=== PATIENT | male | born 1960 | race Caucasian/White ===

== ENCOUNTER 2019-05-29 13:55 | Inpatient (IN) ==
[2019-05-29] MEDS ORDERED: PERCOCET-5 PO PRN (14:59)
[2019-05-29] MEDS ORDERED: LANTUS INSULIN SUBQ SCH (16:00)
[2019-05-29] MEDS: NS 1,000 ML IV SCH (16:53)
[2019-05-29] MEDS: NEURONTIN PO SCH ×2 (16:53→22:39)
[2019-05-29] MEDS: HUMULIN R SUBQ SCH ×2 (17:10→22:39)
[2019-05-29 17:49] LABS: PROTIME 11.8 Seconds (11.0-16.0)
--- NOTE | 2019-05-29 17:52 | ECHO REPORT ---
ORDER DATE: 05/29/2019 INDICATION: Cerebrovascular accident. FINDINGS: 1. Right atrium appears normal in size. 2. Mild tricuspid regurgitation. RV systolic pressure of 33. 3. Normal RV size and systolic function. 4. Mild pulmonic insufficiency. 5. Normal left atrial size at 3.3 cm. 6. No mitral prolapse. Trace mitral regurgitation. No evidence of mitral stenosis. 7. Normal LV size, end-diastolic dimension of 4 cm. Mild left ventricular hypertrophy. Posterior and interventricular septal wall thickness 1.2 cm each. Hyperdynamic LV systolic function. Estimated EF greater than 70%. 8. The aortic valve opens well. It is trileaflet. No evidence of stenosis or insufficiency. 9. The aorta appears normal in visualized segments. 10. No pericardial effusion seen. cc: MD Brittney Turner MD
[2019-05-29 18:04] LABS: INR 0.8
--- NOTE | 2019-05-29 18:16 | Diag Imaging Result Doc PS360 ---
EXAM: CT HEAD W/O CONTRAST HISTORY: CVA TECHNIQUE: CT head without contrast COMPARISON: 07/24/2018 FINDINGS: No parenchymal hemorrhage. No epidural or subdural hematoma. No subarachnoid hemorrhage. Old left parietal infarct similar to the prior study. No mass identified on this noncontrasted exam. No hydrocephalus. No sinus opacification. IMPRESSION: 1.No hemorrhage 2.Old left infarct. This exam was performed using automated exposure control, adjustment of mA or kV according to patient size, and/or use of iterative reconstruction technique. Electronically signed by Augie Hodge 05/29/2019 6:13 PM
[2019-05-29] MEDS: GLUCOPHAGE PO SCH (18:18)
[2019-05-29] MEDS: BUSPAR PO SCH (22:38)
[2019-05-29] MEDS: LIPITOR PO SCH (22:38)
[2019-05-29] MEDS: TRENTAL PO SCH (22:39)
[2019-05-30] MEDS: NS 1,000 ML IV SCH ×2 (05:38→13:33)
[2019-05-30] MEDS: LANTUS INSULIN SUBQ SCH ×2 (06:40→16:07)
[2019-05-30] MEDS: HUMULIN R SUBQ SCH ×4 (06:40→22:25)
[2019-05-30 07:03] LABS: HEMATOCRIT 39.6 % (42.0-52.0); HEMOGLOBIN 12.8 g/dL (14.0-18.0); MCH 26.7 PG (27-31); MCHC 32.3 g/dL (33-37); MCV 82.7 FL (81-99); RBC 4.79 XMIL (4.7-6.1); WBC 6.18 X1000 (4.8-10.8)
[2019-05-30 07:04] LABS: MPV 9.5 FL (7.4-10.4); RDW 15.4 % (11.5-14.5)
[2019-05-30 07:24] LABS: AGAP 9; BUN 14 mg/dL (8-22); CALCIUM 8.9 mg/dL (8.8-10.2); CHLORIDE 99 mmol/L (98-107); COSMO 278; CREATININE 0.5 mg/dL (0.7-1.2); ESTIMATED GFR > 60; GLUCOSE 107 mg/dL (70-104); POTASSIUM 3.3 mmol/L (3.5-5.1); SODIUM 139 mmol/L (136-145); TCO2 31 mmol/L (25-35)
[2019-05-30] MEDS ORDERED: KLOR-CON PO ONE (08:16)
[2019-05-30] MEDS: BUSPAR PO SCH ×2 (08:17→22:24)
[2019-05-30] MEDS: PAXIL PO SCH (08:17)
[2019-05-30] MEDS: NEURONTIN PO SCH ×3 (08:17→22:24)
[2019-05-30] MEDS: TRENTAL PO SCH ×2 (08:17→22:24)
[2019-05-30] MEDS: GLUCOPHAGE PO SCH (08:17)
[2019-05-30] MEDS: DEXILANT PO SCH (08:17)
--- NOTE | 2019-05-30 08:56 | PROGRESS NOTE ---
DATE: 05/30/2019 SUBJECTIVE: Mr. Sotelo was admitted to [facility] with an embolic CVA suggestive of distribution of the left middle cerebral artery. He continues with persistent right-sided weakness. His speech seems a little bit more slurred this morning. His tongue is pointing to the left. He remains in normal sinus rhythm. An ultrasound of the carotids demonstrated chronic occlusion of the left internal carotid artery. The left vertebral artery is now occluded. His echocardiogram is unremarkable. He was hypotensive on admission. We held his blood pressure medicines and resuscitated him with fluids. Systolic blood pressures are now ranging from 105 to 125, whereas his diastolic blood pressures are in the 60s. He denies any chest pain, palpitations, or anginal equivalents. Blood sugars are fluctuating. His sugars are ranging from 178 to 289. OBJECTIVE: Vital Signs: Temperature 98.5 degrees, pulse 85, respiratory rate 12, BP 105/62. Neck: There is a left carotid bruit. CV: Regular rate and rhythm. Lungs: Clear. Abdomen: Soft, nontender, with active bowel sounds. No hepatosplenomegaly. No abdominal bruits. Extremities: Without edema. Neurologic: He is alert and oriented to name, place, and time. Speech is somewhat slurred. Tongue is deviated to the left. He has right-sided weakness. Strength is 4/5 in the right upper extremity and 3-4/5 in the right lower extremity. LABORATORY STUDIES: Various laboratory studies were obtained. A BMP demonstrated the following: Sodium 139, potassium 3.3, BUN 14 and creatinine 0.5. A lipid profile demonstrated total cholesterol of 115, triglycerides 87, LDL 82 and an HDL of 29. A CBC demonstrated white count 6.1, hemoglobin 12.8, hematocrit 39.6 and a platelet count of 289,000. ASSESSMENT AND PLAN: 1. Embolic cerebrovascular accident suggestive of the left middle cerebral distribution. His speech seems more slurred this morning. His initial CT scan of the brain demonstrated a previous left hemispheric stroke. We will check an MRI of the brain today. I will switch him from Plavix to Xarelto 20 mg daily. We will continue aggressive risk factor modification. I have consulted [employer]ices[employer] Representative for short-term rehabilitation placement, and I have also placed a consultation to physical therapy. 2. Mixed hyperlipidemia. Lipids meet the goals of therapy. I will continue atorvastatin 80 mg at bedtime. 3. 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 We will continue an 1800 calorie [employer] diet, pattern sugars, Humulin R sliding scale, and regular home dosage of insulin. 4. Diarrhea. He is currently taking metformin. I will stop the metformin. Nursing staff reported that his stools had a pungent odor. I will check stools for Clostridium difficile toxin and antigen. 5. Hypokalemia. I will give him KCl 20 mEq oral times 1 dose, and recheck a basic metabolic panel in the morning. cc: Brittney Oswald MD
[2019-05-30] MEDS ORDERED: PLAVIX PO SCH (09:00)
--- NOTE | 2019-05-30 13:52 | Diag Imaging Result Doc PS360 ---
EXAM: MRI BRAIN W/CONTRAST 05/30/2019 HISTORY: CVA TECHNIQUE: T1 sagittal, axial and post gadolinium-enhanced axial with coronal reformation, axial T2, FLAIR, DWI and coronal gradient echo. COMMENT: There is extensive encephalomalacia in the left hemisphere. There is no evidence of mass effect or bleed. There is minimal cortical restricted diffusion over the parietal convexity both anterior and posteriorly on the left. There are no previous MRI studies. There is some gyriform enhancement present in the superior left parietal lobe. These areas are also demonstrating restricted diffusion. Presumably this represents E perfusion there is no evidence of bleed, mass effect, or abnormal extra-axial fluid collection. IMPRESSION: Multiple small infarctions in the periphery of the large encephalomalacic region of the left hemisphere. The findings were discussed with Iveth Oswald MD at 05/30/2019 1:50 PM. Electronically signed by Jaylon Heck 05/30/2019 1:50 PM
[2019-05-30] MEDS: XARELTO PO SCH (16:07)
[2019-05-30] MEDS: LIPITOR PO SCH (22:24)
[2019-05-31] MEDS: NS 1,000 ML IV SCH ×2 (05:50→06:21)
[2019-05-31] MEDS: LANTUS INSULIN SUBQ SCH (06:19)
[2019-05-31] MEDS: HUMULIN R SUBQ SCH ×4 (06:20→21:30)
--- NOTE | 2019-05-31 10:12 | PROGRESS NOTE ---
DATE: 05/31/2019 SUBJECTIVE: Mr. Sotelo was admitted to [facility] with an acute hemispheric stroke in the distribution of the left middle cerebral artery, and MRI demonstrated multiple small infarctions in the periphery of the largest encephalomalacic region of the left hemisphere. An ultrasound of the carotids demonstrated chronic occlusion of the left internal carotid artery as well as complete occlusion of the left vertebral artery. His speech seems more fluent this morning. He has not had any new neurologic deficits. He was initially evaluated by physical therapy yesterday. He has a history of type 2 insulin-dependent diabetes mellitus complicated by polyneuropathy. Blood sugars are fluctuating. Blood sugars range from 220 to 308. He does have a history of hypertension. His blood pressure is trending up off medications. He was hypotensive on admission, and we held his blood pressure medicines and bolused him with fluids. Systolic blood pressures are ranging from 137 to 174 whereas his diastolic blood pressures are ranging from 50 to 76. OBJECTIVE: Temperature 98.2 degrees pulse 73, respiratory rate 16, BP 174/72. CV: Regular rate and rhythm. Lungs: Clear. Abdomen: Soft and nontender, with active bowel sounds. Neurologic: He is alert and oriented to name, place, and time. Tongue is deviated to the left. He has residual right-sided weakness. ASSESSMENT AND PLAN: 1. Acute left hemispheric CVA. Unfortunately, he has chronic occlusion of the left internal carotid artery as well as the left vertebral artery. There is no surgical intervention. I have switched him from Plavix to Xarelto 20 mg daily. We will continue physical therapy. Statistical Machine Servicer is working on obtaining a rehab bed for Mr. Sotelo. 2. 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 I will increase the Lantus to 35 units subcutaneously b.i.d. with meals. His diarrhea has tapered off since discontinuation of the metformin. We will continue an 1800 calorie ADA diet, pattern sugars, and a Humulin R sliding scale. 3. He has a history of mixed hyperlipidemia. His most recent lipid profile demonstrated total cholesterol 115, triglycerides 87, LDL 82 and HDL 29. We will continue atorvastatin 80 mg at bedtime. cc: Brittney Oswald MD
[2019-05-31] MEDS: BUSPAR PO SCH ×2 (10:21→20:51)
[2019-05-31] MEDS: NEURONTIN PO SCH ×3 (10:21→20:51)
[2019-05-31] MEDS: DEXILANT PO SCH (10:21)
[2019-05-31] MEDS: PAXIL PO SCH (10:22)
[2019-05-31] MEDS: TRENTAL PO SCH ×2 (10:22→20:52)
[2019-05-31] MEDS ORDERED: LANTUS INSULIN SUBQ SCH (16:00)
[2019-05-31] MEDS: XARELTO PO SCH (17:21)
[2019-05-31] MEDS: LIPITOR PO SCH (20:51)
[2019-06-01] MEDS: NS 1,000 ML IV SCH ×5 (01:30→23:14)
[2019-06-01] MEDS: HUMULIN R SUBQ SCH ×5 (07:18→23:51)
[2019-06-01] MEDS: HUMULIN 70/30 SUBQ SCH ×2 (07:45→16:50)
--- NOTE | 2019-06-01 08:14 | PROGRESS NOTE ---
DATE: 06/01/2019 SUBJECTIVE: Mr. Sotelo was admitted to [facility] with an acute ischemic left middle cerebral artery infarction. He has persistent right-sided weakness. Speech is more fluent. He underwent physical therapy yesterday. He was able to walk approximately 60 feet with minimal assistance and a front wheel walker. He required minimal assist with transfer from sitting to standing and lying down to sitting. We are awaiting word on rehab placement. Blood sugars continue to fluctuate. He has polyuria and polydipsia. Last night, he had a blood sugar of 500. This morning, his blood sugar was 238. Blood pressure has been in the 130s systolically with 1 isolated reading of 176 last night. He denies any chest pain, palpitations, or anginal equivalents. OBJECTIVE: Vital signs: Temperature 97.9 degrees, pulse 71, respiratory rate 16, and BP 139/55. CV: Regular rate and rhythm. Lungs: Clear. Abdomen: Soft, nontender with active bowel sounds. Neurologic: He has persistent right-sided weakness. ASSESSMENT AND PLAN: 1. Hypertension. His blood pressure is trending upward now off the Coreg. Because of his underlying diabetes, I will begin lisinopril 5 mg daily. 2. Left hemispheric stroke in the distribution of the left middle cerebral artery resulting in right-sided weakness. Speech has improved. We will continued aggressive risk factor modification and physical therapy. We are awaiting word from the insurance company as to placement options for rehab. 3. Type 2 insulin-dependent diabetes mellitus. Blood sugars are fluctuating. I would really low to add Humalog with each meal in addition to the Lantus, but compliance with medication has been an issue in the past. I want to try to keep his insulin regimen as simplified as possible. I am going to stop the Lantus and begin Humulin 70/30, 30 units subcutaneously b.i.d. and will adjust his insulin as needed. I would like to see his blood sugars consistently around 150. cc: Brittney Oswald MD
[2019-06-01] MEDS: BUSPAR PO SCH ×2 (09:33→20:53)
[2019-06-01] MEDS: DEXILANT PO SCH (09:33)
[2019-06-01] MEDS: PAXIL PO SCH (09:34)
[2019-06-01] MEDS: TRENTAL PO SCH ×2 (09:34→20:53)
[2019-06-01] MEDS: NEURONTIN PO SCH ×3 (09:34→20:53)
--- NOTE | 2019-06-01 09:40 | Carotid Study ---
DATE: 05/29/2019 PROCEDURE: Carotid duplex imaging. REFERRING PHYSICIAN: Dr. Oswald. INTERPRETING PHYSICIAN: Dr. Cordero. TECH: [place]. Previous comparisons from 07/25/2018. INDICATIONS: CTA. EQUIPMENT: [employer] Vivid E9 ultrasound system with a 9LD transducer. FINDINGS: Complete diagram of ultrasound imaging can be seen in patient's EMR. The peak systolic velocity on the right side is in the distal common carotid is 69. On the left side, also the distal common carotid artery 61. The peak systolic velocity in the internal carotid artery on the right side is 81. On the left, it is 0. The calculated internal common ratio on the right is 1.17 and on the left 0.00. Calculated stenosis on the right 0-39%, left 100%. On the left side, there is complete occlusion. On the right side, it is relatively stable with atherosclerosis noted. There is no flow noted in the left vertebral artery which is different from previous study. PHYSICIAN INTERPRETATION: Compete occlusion of the left carotid artery which is stable from previous study. The right side has a stenosis of 0-39%. There is also no flow noted in the left vertebral artery which is a change from prior. Patient may benefit from CTA angiography to delineate this better. cc: MD Brittney Rowan MD
[2019-06-01] MEDS: PRINIVIL PO SCH (12:49)
[2019-06-01] MEDS: XARELTO PO SCH (16:51)
[2019-06-01] MEDS: LIPITOR PO SCH (20:53)
[2019-06-02] MEDS: HUMULIN 70/30 SUBQ SCH ×2 (06:21→08:57)
[2019-06-02] MEDS: HUMULIN R SUBQ SCH ×2 (06:21→13:05)
[2019-06-02 07:50] VITALS: BP 164/73
[2019-06-02] MEDS: DEXILANT PO SCH (08:51)
[2019-06-02] MEDS: TRENTAL PO SCH (08:51)
[2019-06-02] MEDS: NEURONTIN PO SCH (08:51)
[2019-06-02] MEDS: PAXIL PO SCH (08:51)
[2019-06-02] MEDS: PRINIVIL PO SCH (08:51)
[2019-06-02] MEDS: BUSPAR PO SCH (08:51)
--- NOTE | 2019-06-02 09:05 | DISCHARGE SUMMARY ---
ADMISSION DATE: 05/29/2019 DISCHARGE DATE: 06/02/2019 DISCHARGE DIAGNOSES: 1. Acute ischemic cerebrovascular accident in the distribution of the left middle cerebral artery. 2. Essential hypertension. 3. Type 2 insulin-dependent diabetes mellitus, uncontrolled and complicated by polyneuropathy. 4. Mixed hyperlipidemia. 5. Gastroesophageal reflux disease. 6. Major depression. 7. Intermittent claudication of both lower extremities due to peripheral arterial disease. 8. Chronic low back pain secondary to lumbar spinal stenosis with neurogenic claudication. 9. History of tobacco abuse. DISCHARGE INSTRUCTIONS: 1. The patient will be discharged to [facility] in [place], [place], in order to undergo further rehabilitation following his CVA. 2. 1800 calorie ADA diet. 3. Activity as tolerated. MEDICATIONS: Atorvastatin 80 mg at bedtime, BuSpar 5 mg b.i.d., Dexilant 60 mg daily, Neurontin 600 mg t.i.d., Humulin 70/30, 30 units subcutaneously b.i.d., lisinopril 5 mg daily, Percocet 5 one q. 6 hours p.r.n. pain, Paxil 20 mg daily, Trental 400 mg b.i.d., Xarelto 20 mg daily. DISCHARGE PHYSICAL EXAMINATION: General: This is a chronically ill-appearing 58-year-old gentleman, who looks older than his stated age. Vital Signs: Temperature 98.3 degrees, pulse 78, respirations 19, BP 168/74. Neck: Bilateral carotid bruits. CV: Regular rate and rhythm. Lungs: Clear. Abdomen: Soft, nontender, with active bowel sounds. Extremities: Right- sided weakness of the upper and lower extremities. HOSPITAL COURSE: Mr. Sotelo presented to my office complaining of increasing weakness of his right upper and lower extremities. He had a previous embolic CVA involving the left middle cerebral artery. He had undergone extensive physical therapy. He had been ambulating with the assistance of a walker. His family also reported that he had slurred speech at times. His initial CT scan of the brain demonstrated previous left parietal infarction. We admitted him to [facility] [place]. We initiated a workup. A 2D echocardiogram with color Doppler and spectral flow Doppler studies was grossly normal and did not demonstrate any intramural clots. He remained in normal sinus rhythm on telemetry. A carotid ultrasound demonstrated chronic occlusion of the left internal carotid artery. The left vertebral artery was also completely occluded. We switched him from Plavix to Xarelto. Unfortunately there are no surgical interventions for the chronic occlusion of the left internal carotid artery and the left vertebral artery. We consulted [employer] for rehab placement and consulted physical therapy. A followup MRI of the brain demonstrated multiple small infarctions in the periphery of the large encephalomalacic region of the left hemisphere. He made some improvement with physical therapy. Today, his speech was more fluid. He required minimum assistance with transferring from lying down to sitting. He was able to walk approximately 250 feet with minimal assistance using a front wheeled walker. He had no further neurologic events. We will continue him on Xarelto 20 mg daily. He will be transferred to [facility] in the morning. He does have a history of hypertension. He was hypotensive on admission. We held the Coreg and rehydrated him with normal saline. Once his blood pressure normalized and started trending upward, we added low-dose lisinopril 5 mg daily. He does have a long-standing history of mixed hyperlipidemia. We continued him on atorvastatin 80 mg at night. His lipid profile demonstrated total cholesterol of 115, triglycerides 87, LDL 82 and HDL 29. He has a history of type 2 insulin-dependent diabetes mellitus, poorly controlled and complicated by polyneuropathy. He is really not compliant with diet. We have tried to simplify his insulin regimen. I do not think he would be able to administer 3 or 4 shots per day. His blood sugars were fluctuating. He had polyuria and polydipsia. We stopped the Lantus. We switched him to Humulin 70/30, 30 units subcutaneously b.i.d., and will titrate upward as indicated. I would like to see his blood sugars consistently less than 150. Having reached maximum hospital benefit, the patient was discharged in stable condition. cc: Brittney Oswald MD
== END 2019-06-02 13:08 | DRG 65 ==
LOC: DIRADM 13:55 → 3N 14:41
PROVIDERS: ADMIT Internal Medicine; ATTEND Internal Medicine
CPT/HCPCS: 70450; 70552; 80048; 80061; 82948; 83721; 85027; 85610; 85730; 93306; 93880; 97162; 97166; 97530; 97535; A9270; A9579; J1815; J7030; XXXXX